=== PATIENT | male | born 2000 | race Caucasian/White ===

== ENCOUNTER 2025-08-14 10:25 | Emergency (ER) | payer OTHER ==
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
[2025-08-14 13:07] VITALS: O2SAT 99
[2025-08-14 13:08] VITALS: BP 124/61; TEMP 98.4
== END 2025-08-14 12:48 | disposition home or self-care (01) ==
LOC: ER 10:25
DX: S09.90XA Unspecified injury of head, initial encounter (principal); V43.52XA Car driver injured in collision with other type car in traffic accident, initial encounter; Y93.89 Activity, other specified; Y92.410 Unspecified street and highway as the place of occurrence of the external cause
CPT/HCPCS: 70450; 99283